=== PATIENT | male | born 1930 | race Caucasian/White ===

== ENCOUNTER 2017-06-01 12:49 | Inpatient (IN) | payer OTHER ==
[~2017-06-01] VITALS: Ht 180.3 cm; Wt 66.3 kg
[2017-06-01 14:07] LABS: BASOPHIL (%) 0.5 % (0-1); BASOPHIL COUNT 0.1 K/uL (0-0.1); EOSINOPHIL (%) 2.7 % (0-5); EOSINOPHIL COUNT 0.3 K/uL (0-0.3); HEMATOCRIT 37.1 % (38.0-50.0); HEMOGLOBIN 11.9 G/DL (12.5-16.6); IMMATURE GRANULOCYTE (%) 0.4 % (0.0-0.7); LYMPHOCYTE (%) 10.6 % (15-42); LYMPHOCYTE COUNT 1.2 K/uL (1.0-2.8); MCH 31.5 PG (29.0-34.0); MCHC 32.1 G/DL (30.0-36.0); MCV 98.1 FL (86-99); MONOCYTE (%) 10.5 % (3-12); MONOCYTE COUNT 1.2 K/uL (0-0.8); NEUTROPHIL (%) 75.3 % (45-76); NEUTROPHIL COUNT 8.5 K/uL (1.8-6.4); PLATELET COUNT 354 K/uL (156-360); RBC DIS.WIDTH-CV 17.1 % (11.8-14.6); RBC DIS.WIDTH-SD 61.5 % (39-53); RED BLOOD COUNT 3.78 M/uL (4.00-5.50); WHITE BLOOD COUNT 11.3 K/uL (4.1-10.2)
[2017-06-01 14:17] LABS: CHLORIDE 97 mEq/L (99-109); POTASSIUM 5.8 mEq/L (3.7-5.4); SODIUM 134 mEq/L (136-147)
[2017-06-01 14:18] LABS: MAGNESIUM 1.6 mg/dL (1.3-2.7)
[2017-06-01 14:19] LABS: GLUCOSE 136 mg/dL (70-99)
[2017-06-01 14:23] LABS: CREATININE 3.7 mg/dL (0.6-1.3); GFR ESTIMATE (CALCULATED) 17 mL/min/ (58.99-99999); UREA NITROGEN (BUN) 75 mg/dL (9-23)
[2017-06-01 14:30] LABS: TROP-I INTERPRETATION NEGATIVE; TROPONIN-I 0.04 ng/mL (0.0-0.30)
[2017-06-01 14:31] LABS: INTER. NORMALIZED RATIO 1.2
[2017-06-01 14:34] LABS: PTT 34.4 SEC (25-37)
[2017-06-01 16:34] LABS: HDL CHOLESTEROL 39 MG/DL (Desirable>=40); LDL CHOLESTEROL 32 mg/dL (Desirable<100); NON-HDL CHOLESTEROL 44 mg/dL (Desirable<160); TOTAL CHOLESTEROL 83 mg/dL (Desirable<200); TRIGLYCERIDES 60 MG/DL (Normal: <150)
[2017-06-01 16:38] LABS: Estimated Average Glucose 146 mg/dL (70-123); HEMOGLOBIN A1c (GLYCOHEMOGLOB) 6.7 % HGB (Below 5.7)
[2017-06-01 22:51] LABS: TROP-I INTERPRETATION NEGATIVE; TROPONIN-I 0.04 ng/mL (0.0-0.30)
[2017-06-02 02:59] LABS: TROP-I INTERPRETATION NEGATIVE; TROPONIN-I 0.04 ng/mL (0.0-0.30)
[2017-06-02 07:43] VITALS: BP 133/74
[2017-06-02 08:08] LABS: CHLORIDE 99 MEQ/L (99-109); CREATININE 3.7 MG/DL (0.6-1.3); GFR ESTIMATE (CALCULATED) 17 mL/min/ (58.99-99999); GLUCOSE 125 mg/dL (70-99); POTASSIUM 5.6 MEQ/L (3.7-5.4); SODIUM 134 MEQ/L (136-147); UREA NITROGEN (BUN) 73 mg/dL (9-23)
[2017-06-02 09:19] LABS: BASOPHIL (%) 0.9 % (0-1); BASOPHIL COUNT 0.1 K/uL (0-0.1); EOSINOPHIL (%) 5.4 % (0-5); EOSINOPHIL COUNT 0.5 K/uL (0-0.3); HEMATOCRIT 35.2 % (38.0-50.0); HEMOGLOBIN 11.3 G/DL (12.5-16.6); IMMATURE GRANULOCYTE (%) 0.5 % (0.0-0.7); LYMPHOCYTE (%) 13.3 % (15-42); LYMPHOCYTE COUNT 1.2 K/uL (1.0-2.8); MCH 31.4 PG (29.0-34.0); MCHC 32.1 G/DL (30.0-36.0); MCV 97.8 FL (86-99); MONOCYTE (%) 11.5 % (3-12); NEUTROPHIL (%) 68.4 % (45-76); NEUTROPHIL COUNT 5.9 K/uL (1.8-6.4); PLATELET COUNT 369 K/uL (156-360); RBC DIS.WIDTH-CV 17.3 % (11.8-14.6); RBC DIS.WIDTH-SD 61.8 % (39-53); WHITE BLOOD COUNT 8.7 K/uL (4.1-10.2)
[2017-06-02 09:24] LABS: ALBUMIN 2.6 G/DL (3.2-4.8)
[2017-06-02 09:30] LABS: PHOSPHORUS 3.7 mg/dL (2.5-4.9)
[2017-06-02 10:17] LABS: HEPATITIS B SURFACE ANTIBODY Nonreactive; HEPATITIS B SURFACE ANTIGEN Nonreactive
[2017-06-02 16:54] VITALS: BP 132/62
[2017-06-02 16:56] VITALS: BP 108/65
[2017-06-02 20:02] VITALS: BP 114/67
[2017-06-03] VITALS (7 sets, daily range): BP systolic 119–133; BP diastolic 60–73
[2017-06-03 06:40] LABS: HEMATOCRIT 34.4 % (38.0-50.0); HEMOGLOBIN 10.8 G/DL (12.5-16.6); MCH 30.9 PG (29.0-34.0); MCHC 31.4 G/DL (30.0-36.0); MCV 98.3 FL (86-99); PLATELET COUNT 380 K/uL (156-360); RBC DIS.WIDTH-CV 17.2 % (11.8-14.6); RBC DIS.WIDTH-SD 62.1 % (39-53)
[2017-06-03 07:11] LABS: CHLORIDE 99 MEQ/L (99-109); POTASSIUM 5.1 MEQ/L (3.7-5.4); SODIUM 134 MEQ/L (136-147)
[2017-06-03 07:24] LABS: GFR ESTIMATE (CALCULATED) 21 mL/min/ (58.99-99999); GLUCOSE 127 mg/dL (70-99); UREA NITROGEN (BUN) 42 mg/dL (9-23)
[2017-06-04 03:41] VITALS: BP 121/69
[2017-06-04 07:06] VITALS: BP 105/54
[2017-06-04 08:57] LABS: BASOPHIL COUNT 0.1 K/uL (0-0.1); EOSINOPHIL (%) 4.3 % (0-5); EOSINOPHIL COUNT 0.3 K/uL (0-0.3); HEMATOCRIT 31.3 % (38.0-50.0); HEMOGLOBIN 10.3 G/DL (12.5-16.6); IMMATURE GRANULOCYTE (%) 0.6 % (0.0-0.7); LYMPHOCYTE COUNT 1.2 K/uL (1.0-2.8); MCH 31.9 PG (29.0-34.0); MCHC 32.9 G/DL (30.0-36.0); MCV 96.9 FL (86-99); MONOCYTE (%) 14.2 % (3-12); MONOCYTE COUNT 1.1 K/uL (0-0.8); NEUTROPHIL (%) 64.9 % (45-76); NEUTROPHIL COUNT 5.1 K/uL (1.8-6.4); PLATELET COUNT 357 K/uL (156-360); RBC DIS.WIDTH-CV 16.8 % (11.8-14.6); RBC DIS.WIDTH-SD 59.8 % (39-53); RED BLOOD COUNT 3.23 M/uL (4.00-5.50); WHITE BLOOD COUNT 7.9 K/uL (4.1-10.2)
[2017-06-04 09:08] LABS: ALBUMIN 2.6 G/DL (3.2-4.8); CHLORIDE 100 MEQ/L (99-109); POTASSIUM 5.6 MEQ/L (3.7-5.4); SODIUM 132 MEQ/L (136-147)
[2017-06-04 09:14] LABS: CREATININE 3.2 MG/DL (0.6-1.3); GFR ESTIMATE (CALCULATED) 20 mL/min/ (58.99-99999); GLUCOSE 183 mg/dL (70-99); UREA NITROGEN (BUN) 55 mg/dL (9-23)
[2017-06-04 15:34] VITALS: BP 103/56
[2017-06-04 20:11] VITALS: BP 127/72
[2017-06-05] VITALS (7 sets, daily range): BP systolic 110–132; BP diastolic 58–98
[2017-06-05 07:04] LABS: CHLORIDE 100 MEQ/L (99-109); GFR ESTIMATE (CALCULATED) 26 mL/min/ (58.99-99999); POTASSIUM 5.7 MEQ/L (3.7-5.4); SODIUM 133 MEQ/L (136-147); UREA NITROGEN (BUN) 33 mg/dL (9-23)
[2017-06-05 07:09] LABS: CREATININE 2.5 MG/DL (0.6-1.3); GLUCOSE 116 mg/dL (70-99)
[2017-06-05 13:08] LABS: LACTATE DEHYDROGENASE 179 IU/L (20-246); TOTAL PROTEIN 5.5 G/DL (6.4-8.3)
[2017-06-05 16:11] LABS: BODY FLUID LDH 125 IU/L; BODY FLUID PROTEIN 3.3 G/DL
[2017-06-05 16:16] LABS: RED CELL COUNT 21000 /MM^3 (0-1); WHITE CELL COUNT 592 /MM^3 (0-200.0)
[2017-06-05 16:19] LABS: MONONUCLEAR WBC'S 88 %; POLYNUCLEAR WBC'S 9 % (0-25); SYNOVIAL FLUID EOSINOPHILS 3 % (0-25)
[2017-06-06 03:26] VITALS: BP 116/59
[2017-06-06 07:19] VITALS: BP 107/62
[2017-06-06 08:38] LABS: BASOPHIL (%) 0.8 % (0-1); BASOPHIL COUNT 0.1 K/uL (0-0.1); EOSINOPHIL (%) 0.8 % (0-5); EOSINOPHIL COUNT 0.1 K/uL (0-0.3); HEMATOCRIT 33.9 % (38.0-50.0); HEMOGLOBIN 10.9 G/DL (12.5-16.6); IMMATURE GRANULOCYTE (%) 0.6 % (0.0-0.7); LYMPHOCYTE (%) 9.2 % (15-42); MCH 31.1 PG (29.0-34.0); MCHC 32.2 G/DL (30.0-36.0); MCV 96.9 FL (86-99); MONOCYTE (%) 9.6 % (3-12); MONOCYTE COUNT 1.1 K/uL (0-0.8); NEUTROPHIL COUNT 8.9 K/uL (1.8-6.4); PLATELET COUNT 387 K/uL (156-360); RBC DIS.WIDTH-CV 16.5 % (11.8-14.6); RBC DIS.WIDTH-SD 58.6 % (39-53); WHITE BLOOD COUNT 11.2 K/uL (4.1-10.2)
[2017-06-06 08:50] LABS: ALBUMIN 2.6 G/DL (3.2-4.8); CHLORIDE 100 MEQ/L (99-109); POTASSIUM 5.7 MEQ/L (3.7-5.4); SODIUM 131 MEQ/L (136-147)
[2017-06-06 09:03] LABS: GFR ESTIMATE (CALCULATED) 21 mL/min/ (58.99-99999); PHOSPHORUS 4.9 mg/dL (2.5-4.9)
[2017-06-06 09:04] LABS: CREATININE 3.1 MG/DL (0.6-1.3); GLUCOSE 226 mg/dL (70-99); UREA NITROGEN (BUN) 51 mg/dL (9-23)
[2017-06-06 10:16] LABS: CRYSTALS NO CRYSTALS SEEN
[2017-06-06 12:18] VITALS: BP 93/50
[2017-06-06 17:10] VITALS: BP 101/55
[2017-06-06 20:31] VITALS: BP 96/52
[2017-06-07 01:38] VITALS: BP 88/49
[2017-06-07 05:08] VITALS: BP 101/63
[2017-06-07 08:00] VITALS: BP 92/58
[2017-06-07 16:00] VITALS: BP 104/63
[2017-06-07 23:49] VITALS: BP 101/53
[2017-06-08 08:23] VITALS: BP 112/60
[2017-06-08 11:16] LABS: C DIFF TOXIN NEGATIVE (NEGATIVE)
[2017-06-08 11:18] LABS: BASOPHIL (%) 0.7 % (0-1); BASOPHIL COUNT 0.1 K/uL (0-0.1); EOSINOPHIL (%) 1.4 % (0-5); EOSINOPHIL COUNT 0.2 K/uL (0-0.3); HEMATOCRIT 34.7 % (38.0-50.0); HEMOGLOBIN 11.2 G/DL (12.5-16.6); IMMATURE GRANULOCYTE (%) 0.5 % (0.0-0.7); LYMPHOCYTE (%) 8.7 % (15-42); LYMPHOCYTE COUNT 0.9 K/uL (1.0-2.8); MCH 31.5 PG (29.0-34.0); MCHC 32.3 G/DL (30.0-36.0); MCV 97.5 FL (86-99); MONOCYTE (%) 8.8 % (3-12); MONOCYTE COUNT 0.9 K/uL (0-0.8); NEUTROPHIL (%) 79.9 % (45-76); NEUTROPHIL COUNT 8.5 K/uL (1.8-6.4); PLATELET COUNT 336 K/uL (156-360); RBC DIS.WIDTH-CV 16.2 % (11.8-14.6); RBC DIS.WIDTH-SD 58.3 % (39-53); RED BLOOD COUNT 3.56 M/uL (4.00-5.50); WHITE BLOOD COUNT 10.6 K/uL (4.1-10.2)
[2017-06-08 11:44] LABS: CHLORIDE 99 MEQ/L (99-109); CREATININE 3.2 MG/DL (0.6-1.3); GFR ESTIMATE (CALCULATED) 20 mL/min/ (58.99-99999); GLUCOSE 171 mg/dL (70-99); POTASSIUM 5.2 MEQ/L (3.7-5.4); SODIUM 133 MEQ/L (136-147); UREA NITROGEN (BUN) 59 mg/dL (9-23)
[2017-06-08 16:00] VITALS: BP 107/60
[2017-06-08 20:30] VITALS: BP 107/53
[2017-06-09 00:07] VITALS: BP 108/58
[2017-06-09 00:10] VITALS: BP 114/55
[2017-06-09 07:46] VITALS: BP 103/53
[2017-06-09 08:08] LABS: BASOPHIL (%) 0.6 % (0-1); BASOPHIL COUNT 0.1 K/uL (0-0.1); EOSINOPHIL (%) 2.7 % (0-5); EOSINOPHIL COUNT 0.2 K/uL (0-0.3); HEMOGLOBIN 9.5 G/DL (12.5-16.6); IMMATURE GRANULOCYTE (%) 0.6 % (0.0-0.7); LYMPHOCYTE (%) 15.1 % (15-42); LYMPHOCYTE COUNT 1.2 K/uL (1.0-2.8); MCH 31.5 PG (29.0-34.0); MCHC 32.8 G/DL (30.0-36.0); MONOCYTE (%) 7.8 % (3-12); MONOCYTE COUNT 0.6 K/uL (0-0.8); NEUTROPHIL (%) 73.2 % (45-76); PLATELET COUNT 374 K/uL (156-360); RBC DIS.WIDTH-SD 56.2 % (39-53); RED BLOOD COUNT 3.02 M/uL (4.00-5.50); WHITE BLOOD COUNT 8.2 K/uL (4.1-10.2)
[2017-06-09 08:24] LABS: CHLORIDE 100 MEQ/L (99-109); CREATININE 3.4 MG/DL (0.6-1.3); GFR ESTIMATE (CALCULATED) 18 mL/min/ (58.99-99999); GLUCOSE 149 mg/dL (70-99); POTASSIUM 4.3 MEQ/L (3.7-5.4); SODIUM 132 MEQ/L (136-147); UREA NITROGEN (BUN) 68 mg/dL (9-23)
[2017-06-09 12:08] VITALS: BP 103/53
[2017-06-09 16:09] VITALS: BP 115/56
[2017-06-10 08:20] LABS: BASOPHIL (%) 0.7 % (0-1); BASOPHIL COUNT 0.1 K/uL (0-0.1); EOSINOPHIL COUNT 0.1 K/uL (0-0.3); HEMATOCRIT 33.5 % (38.0-50.0); HEMOGLOBIN 10.8 G/DL (12.5-16.6); IMMATURE GRANULOCYTE (%) 0.6 % (0.0-0.7); LYMPHOCYTE (%) 9.5 % (15-42); LYMPHOCYTE COUNT 0.9 K/uL (1.0-2.8); MCH 31.8 PG (29.0-34.0); MCHC 32.2 G/DL (30.0-36.0); MCV 98.5 FL (86-99); MONOCYTE (%) 9.2 % (3-12); MONOCYTE COUNT 0.8 K/uL (0-0.8); NEUTROPHIL COUNT 7.1 K/uL (1.8-6.4); PLATELET COUNT 388 K/uL (156-360); RBC DIS.WIDTH-CV 16.1 % (11.8-14.6)
[2017-06-10 08:24] LABS: CHLORIDE 105 MEQ/L (99-109); POTASSIUM 4.8 MEQ/L (3.7-5.4); SODIUM 138 MEQ/L (136-147)
[2017-06-10 08:30] LABS: GFR ESTIMATE (CALCULATED) 28 mL/min/ (58.99-99999); UREA NITROGEN (BUN) 38 mg/dL (9-23)
[2017-06-10 08:31] LABS: CREATININE 2.4 MG/DL (0.6-1.3); GLUCOSE 73 mg/dL (70-99)
[2017-06-10 18:15] VITALS: BP 104/54
[2017-06-11 01:16] VITALS: BP 98/54
[2017-06-11 03:56] VITALS: BP 95/54
[2017-06-11 08:00] VITALS: BP 112/60
[2017-06-11 08:52] LABS: BASOPHIL (%) 0.7 % (0-1); BASOPHIL COUNT 0.1 K/uL (0-0.1); EOSINOPHIL (%) 2.7 % (0-5); EOSINOPHIL COUNT 0.2 K/uL (0-0.3); HEMATOCRIT 26.2 % (38.0-50.0); IMMATURE GRANULOCYTE (%) 0.2 % (0.0-0.7); LYMPHOCYTE (%) 10.6 % (15-42); LYMPHOCYTE COUNT 0.9 K/uL (1.0-2.8); MCH 31.7 PG (29.0-34.0); MCHC 32.4 G/DL (30.0-36.0); MCV 97.8 FL (86-99); MONOCYTE (%) 8.8 % (3-12); MONOCYTE COUNT 0.7 K/uL (0-0.8); NEUTROPHIL COUNT 6.2 K/uL (1.8-6.4); PLATELET COUNT 387 K/uL (156-360); RBC DIS.WIDTH-SD 57.3 % (39-53); WHITE BLOOD COUNT 8.1 K/uL (4.1-10.2)
[2017-06-11 08:54] LABS: ALBUMIN 2.3 G/DL (3.2-4.8); CHLORIDE 107 MEQ/L (99-109); POTASSIUM 4.5 MEQ/L (3.7-5.4); SODIUM 137 MEQ/L (136-147)
[2017-06-11 09:01] LABS: GFR ESTIMATE (CALCULATED) 21 mL/min/ (58.99-99999); PHOSPHORUS 4.3 mg/dL (2.5-4.9); UREA NITROGEN (BUN) 51 mg/dL (9-23)
[2017-06-11 09:07] LABS: GLUCOSE 200 mg/dL (70-99)
[2017-06-11 09:15] LABS: HEMOGLOBIN 8.5 G/DL (12.5-16.6); RED BLOOD COUNT 2.68 M/uL (4.00-5.50)
[2017-06-11 12:15] VITALS: BP 96/52
[2017-06-11 15:12] LABS: HEMATOCRIT 29.4 % (38.0-50.0); HEMOGLOBIN 9.2 G/DL (12.5-16.6); MCH 30.7 PG (29.0-34.0); MCHC 31.3 G/DL (30.0-36.0); PLATELET COUNT 352 K/uL (156-360); RBC DIS.WIDTH-CV 15.8 % (11.8-14.6); RBC DIS.WIDTH-SD 56.4 % (39-53); WHITE BLOOD COUNT 9.1 K/uL (4.1-10.2)
[2017-06-11 16:00] VITALS: BP 114/58
[2017-06-11 20:09] VITALS: BP 103/51
[2017-06-12 00:03] VITALS: BP 104/59
[2017-06-12 03:54] VITALS: BP 101/59
[2017-06-12 06:12] LABS: BASOPHIL (%) 0.5 % (0-1); EOSINOPHIL (%) 3.1 % (0-5); EOSINOPHIL COUNT 0.2 K/uL (0-0.3); HEMATOCRIT 27.6 % (38.0-50.0); HEMOGLOBIN 8.9 G/DL (12.5-16.6); IMMATURE GRANULOCYTE (%) 0.4 % (0.0-0.7); LYMPHOCYTE (%) 15.4 % (15-42); LYMPHOCYTE COUNT 1.2 K/uL (1.0-2.8); MCH 31.3 PG (29.0-34.0); MCHC 32.2 G/DL (30.0-36.0); MCV 97.2 FL (86-99); MONOCYTE (%) 9.3 % (3-12); MONOCYTE COUNT 0.7 K/uL (0-0.8); NEUTROPHIL (%) 71.3 % (45-76); NEUTROPHIL COUNT 5.6 K/uL (1.8-6.4); PLATELET COUNT 388 K/uL (156-360); RBC DIS.WIDTH-CV 15.8 % (11.8-14.6); RBC DIS.WIDTH-SD 55.5 % (39-53); RED BLOOD COUNT 2.84 M/uL (4.00-5.50); WHITE BLOOD COUNT 7.8 K/uL (4.1-10.2)
[2017-06-12 06:42] LABS: CHLORIDE 102 MEQ/L (99-109); GFR ESTIMATE (CALCULATED) 32 mL/min/ (58.99-99999); GLUCOSE 139 mg/dL (70-99); POTASSIUM 3.9 MEQ/L (3.7-5.4); SODIUM 138 MEQ/L (136-147); UREA NITROGEN (BUN) 31 mg/dL (9-23)
[2017-06-12 06:48] LABS: CREATININE 2.1 MG/DL (0.6-1.3)
[2017-06-12 07:08] VITALS: BP 103/54
[2017-06-12 10:59] VITALS: BP 106/52
[2017-06-13] VITALS: BP 132/61
[2017-06-13 06:52] LABS: BASOPHIL (%) 0.9 % (0-1); BASOPHIL COUNT 0.1 K/uL (0-0.1); EOSINOPHIL (%) 2.8 % (0-5); EOSINOPHIL COUNT 0.2 K/uL (0-0.3); HEMATOCRIT 28.9 % (38.0-50.0); HEMOGLOBIN 9.4 G/DL (12.5-16.6); IMMATURE GRANULOCYTE (%) 0.6 % (0.0-0.7); LYMPHOCYTE (%) 14.3 % (15-42); LYMPHOCYTE COUNT 1.2 K/uL (1.0-2.8); MCH 31.4 PG (29.0-34.0); MCHC 32.5 G/DL (30.0-36.0); MCV 96.7 FL (86-99); MONOCYTE (%) 8.8 % (3-12); MONOCYTE COUNT 0.7 K/uL (0-0.8); NEUTROPHIL (%) 72.6 % (45-76); NEUTROPHIL COUNT 5.9 K/uL (1.8-6.4); PLATELET COUNT 457 K/uL (156-360); RBC DIS.WIDTH-CV 15.8 % (11.8-14.6); RBC DIS.WIDTH-SD 55.4 % (39-53); RED BLOOD COUNT 2.99 M/uL (4.00-5.50); WHITE BLOOD COUNT 8.1 K/uL (4.1-10.2)
[2017-06-13 07:02] LABS: CHLORIDE 101 MEQ/L (99-109); GFR ESTIMATE (CALCULATED) 23 mL/min/ (58.99-99999); GLUCOSE 136 mg/dL (70-99); POTASSIUM 4.6 MEQ/L (3.7-5.4); SODIUM 136 MEQ/L (136-147); UREA NITROGEN (BUN) 44 mg/dL (9-23)
[2017-06-13 07:03] VITALS: BP 116/57
[2017-06-13 07:06] LABS: CREATININE 2.8 MG/DL (0.6-1.3)
[2017-06-13 15:08] VITALS: BP 107/63
[2017-06-13 23:25] VITALS: BP 136/51
[2017-06-14 07:32] VITALS: BP 110/74
[2017-06-14 09:06] LABS: CHLORIDE 99 MEQ/L (99-109); POTASSIUM 4.8 MEQ/L (3.7-5.4); SODIUM 131 MEQ/L (136-147)
[2017-06-14 09:07] LABS: BASOPHIL (%) 0.8 % (0-1); BASOPHIL COUNT 0.1 K/uL (0-0.1); EOSINOPHIL (%) 2.4 % (0-5); EOSINOPHIL COUNT 0.2 K/uL (0-0.3); HEMATOCRIT 28.5 % (38.0-50.0); HEMOGLOBIN 9.2 G/DL (12.5-16.6); IMMATURE GRANULOCYTE (%) 0.7 % (0.0-0.7); LYMPHOCYTE (%) 14.2 % (15-42); LYMPHOCYTE COUNT 1.1 K/uL (1.0-2.8); MCHC 32.3 G/DL (30.0-36.0); MONOCYTE (%) 9.3 % (3-12); MONOCYTE COUNT 0.7 K/uL (0-0.8); NEUTROPHIL (%) 72.6 % (45-76); NEUTROPHIL COUNT 5.4 K/uL (1.8-6.4); PLATELET COUNT 548 K/uL (156-360); RBC DIS.WIDTH-CV 15.7 % (11.8-14.6); RBC DIS.WIDTH-SD 54.3 % (39-53); RED BLOOD COUNT 2.97 M/uL (4.00-5.50); WHITE BLOOD COUNT 7.5 K/uL (4.1-10.2)
[2017-06-14 09:11] LABS: CREATININE 3.1 MG/DL (0.6-1.3); GFR ESTIMATE (CALCULATED) 21 mL/min/ (58.99-99999); GLUCOSE 165 mg/dL (70-99); UREA NITROGEN (BUN) 56 mg/dL (9-23)
[2017-06-14 09:16] LABS: ALBUMIN 2.3 G/DL (3.2-4.8)
[2017-06-14] MEDS ORDERED: TYLENOL REGULA325 MG PO (13:17)
[2017-06-14] MEDS ORDERED: CLOPIDOGREL75 MG PO (13:17)
[2017-06-14] MEDS ORDERED: ATORVASTATIN CA40 MG PO (13:17)
[2017-06-14] MEDS ORDERED: LOPRESSOR25 MG PO (13:17)
[2017-06-14] MEDS ORDERED: ASPIR-LOW81 MG PO (13:17)
[2017-06-14] MEDS ORDERED: NOVOLOG PE100 UNITS/ SC (13:18)
[2017-06-14] MEDS ORDERED: NEPHRO-VITE,1 TABLET PO (13:18)
== END 2017-06-14 14:39 | DRG 23 ==
LOC: EME 12:49 → 2SOUTH 15:23 → 5SOUTH 15:23 → EDOF 15:23 → ENRESERV 15:26 → 5SOUTH 18:13 → ENRESERV 06-09 11:37 → 5SOUTH 06-09 17:42 → 2SOUTH 06-10 06:56 → ENRESERV 06-10 16:06 → 5SOUTH 06-10 17:45
PROVIDERS: Emergency Medicine; Internal Medicine; Internal Medicine Nephrology; Physician Assistant; Radiology Diagnostic Radiology
DX: I63.233 Cerebral infarction due to unspecified occlusion or stenosis of bilateral carotid arteries (principal); N18.6 End stage renal disease; E11.22 Type 2 diabetes mellitus with diabetic chronic kidney disease; E11.51 Type 2 diabetes mellitus with diabetic peripheral angiopathy without gangrene; I95.9 Hypotension, unspecified; I07.1 Rheumatic tricuspid insufficiency; J44.9 Chronic obstructive pulmonary disease, unspecified; I65.23 Occlusion and stenosis of bilateral carotid arteries; E78.5 Hyperlipidemia, unspecified; I50.9 Heart failure, unspecified; D63.1 Anemia in chronic kidney disease; I12.9 Hypertensive chronic kidney disease with stage 1 through stage 4 chronic kidney disease, or unspecified chronic kidney disease; R09.02 Hypoxemia; K21.9 Gastro-esophageal reflux disease without esophagitis; J98.11 Atelectasis; G83.24 Monoplegia of upper limb affecting left nondominant side; M21.332 Wrist drop, left wrist; I48.2 Chronic atrial fibrillation; Z96.652 Presence of left artificial knee joint; Z99.2 Dependence on renal dialysis; R94.31 Abnormal electrocardiogram [ECG] [EKG]; M97.12XD Periprosthetic fracture around internal prosthetic left knee joint, subsequent encounter; Z86.73 Personal history of transient ischemic attack (TIA), and cerebral infarction without residual deficits; Z68.1 Body mass index [BMI] 19.9 or less, adult; Z79.82 Long term (current) use of aspirin; Z87.891 Personal history of nicotine dependence; Z91.81 History of falling; Q21.1 Atrial septal defect
CPT/HCPCS: 70450; 70496; 70498; 70551; 71010; 71020; 71045; 71046; 71250; 73552; 76942; 80048; 80061; 80069; 82948; 83036; 83615; 83615 91; 83735; 84155; 84157; 84484; 85025; 85025 91; 85027; 85610; 85730; 86706; 86850; 86900; 86901; 86920; 87070; 87075; 87205; 87340; 87493; 88108; 88300; 88305; 89051; 93005; 93306; 93970; 94799; 99281; 99285; C1768; J0690; J0881; J1644; J1815; J1940; J2370; J2720; J2795; J3010; J7030; J7050; J7120

== ENCOUNTER 2017-06-20 12:28 | Inpatient (IN) | payer OTHER ==
[~2017-06-20] VITALS: Ht 180.3 cm; Wt 65.9 kg
[~2017-06-20 12:28] MED LIST: ASPIR-LOW81 MG PO; ATORVASTATIN CA40 MG PO; CLOPIDOGREL75 MG PO; LOPRESSOR25 MG PO; NEPHRO-VITE,1 TABLET PO; NOVOLOG PE100 UNITS/ SC; TYLENOL REGULA325 MG PO
[2017-06-20 14:23] LABS: HEMATOCRIT 29.7 % (38.0-50.0); HEMOGLOBIN 9.5 G/DL (12.5-16.6); MCH 31.7 PG (29.0-34.0); PLATELET COUNT 468 K/uL (156-360); RBC DIS.WIDTH-CV 17.2 % (11.8-14.6); WHITE BLOOD COUNT 10.9 K/uL (4.1-10.2)
[2017-06-20 14:31] LABS: CHLORIDE 101 mEq/L (99-109); INTER. NORMALIZED RATIO 1.3; POTASSIUM 5.6 mEq/L (3.7-5.4); SODIUM 130 mEq/L (136-147)
[2017-06-20 14:33] LABS: GLUCOSE 116 mg/dL (70-99)
[2017-06-20 14:34] LABS: PTT 34.2 SEC (25-37)
[2017-06-20 14:37] LABS: GFR ESTIMATE (CALCULATED) 27 mL/min/ (58.99-99999)
[2017-06-20 14:38] LABS: CREATININE 2.4 mg/dL (0.6-1.3); UREA NITROGEN (BUN) 64 mg/dL (9-23)
[2017-06-20] MEDS ORDERED: ROCALTROL0.25 MCG PO (16:18)
[2017-06-20] MEDS ORDERED: ACID CONTROL150 MG PO (16:18)
[2017-06-20] MEDS ORDERED: LIPITOR40 MG PO (16:19)
[2017-06-20] MEDS ORDERED: LOPRESSOR25 MG PO (16:19)
[2017-06-20] MEDS ORDERED: ASPIR 8181 M1 PO (16:20)
[2017-06-20] MEDS ORDERED: FULL SPECTRUM0.8 MG PO (16:21)
[2017-06-20] MEDS ORDERED: EXTRA STRENGTH500 M1 PO (16:23)
[2017-06-20] MEDS ORDERED: NOVOLOG 10100 UNITS/ SC (16:25)
[2017-06-20] MEDS ORDERED: PLAVIX75 MG PO (16:25)
[2017-06-20 18:31] VITALS: BP 106/69
[2017-06-20 20:46] LABS: HEMATOCRIT 27.1 % (38.0-50.0); HEMOGLOBIN 8.5 G/DL (12.5-16.6); MCV 101.5 FL (86-99)
[2017-06-20 23:00] VITALS: BP 129/93
[2017-06-21 01:58] LABS: HEMATOCRIT 23.6 % (38.0-50.0); HEMOGLOBIN 7.6 G/DL (12.5-16.6); MCV 98.3 FL (86-99)
[2017-06-21 04:18] VITALS: BP 95/51
[2017-06-21 05:18] LABS: HEMATOCRIT 21.7 % (38.0-50.0); HEMOGLOBIN 7.1 G/DL (12.5-16.6); MCH 32.3 PG (29.0-34.0); MCHC 32.7 G/DL (30.0-36.0); MCV 98.6 FL (86-99); PLATELET COUNT 452 K/uL (156-360); RBC DIS.WIDTH-CV 17.5 % (11.8-14.6); RBC DIS.WIDTH-SD 59.3 % (39-53); WHITE BLOOD COUNT 10.4 K/uL (4.1-10.2)
[2017-06-21 08:19] VITALS: BP 87/52
[2017-06-21 08:43] LABS: HEMATOCRIT 22.4 % (38.0-50.0); HEMOGLOBIN 7.1 G/DL (12.5-16.6); MCV 99.1 FL (86-99)
[2017-06-21 14:25] VITALS: BP 90/60
[2017-06-21 16:08] VITALS: BP 116/56
[2017-06-21 18:18] LABS: HEMATOCRIT 32.2 % (38.0-50.0)
[2017-06-21 18:20] LABS: HEMOGLOBIN 10.2 G/DL (12.5-16.6); MCV 94.7 FL (86-99)
[2017-06-21 23:57] VITALS: BP 107/56
[2017-06-22 05:27] LABS: BASOPHIL (%) 0.7 % (0-1); BASOPHIL COUNT 0.1 K/uL (0-0.1); EOSINOPHIL (%) 1.9 % (0-5); EOSINOPHIL COUNT 0.2 K/uL (0-0.3); HEMATOCRIT 29.4 % (38.0-50.0); HEMOGLOBIN 9.5 G/DL (12.5-16.6); IMMATURE GRANULOCYTE (%) 0.9 % (0.0-0.7); LYMPHOCYTE (%) 14.2 % (15-42); LYMPHOCYTE COUNT 1.4 K/uL (1.0-2.8); MCH 30.5 PG (29.0-34.0); MCHC 32.3 G/DL (30.0-36.0); MCV 94.5 FL (86-99); MONOCYTE (%) 10.3 % (3-12); PLATELET COUNT 326 K/uL (156-360); RBC DIS.WIDTH-CV 19.8 % (11.8-14.6); RBC DIS.WIDTH-SD 63.8 % (39-53); WHITE BLOOD COUNT 9.8 K/uL (4.1-10.2)
[2017-06-22 05:40] LABS: RED BLOOD COUNT 3.11 M/uL (4.00-5.50)
[2017-06-22 06:16] LABS: CHLORIDE 103 MEQ/L (99-109); CREATININE 2.2 MG/DL (0.6-1.3); GFR ESTIMATE (CALCULATED) 30 mL/min/ (58.99-99999); GLUCOSE 138 mg/dL (70-99); POTASSIUM 4.1 MEQ/L (3.7-5.4); SODIUM 134 MEQ/L (136-147); UREA NITROGEN (BUN) 33 mg/dL (9-23)
[2017-06-22 09:23] VITALS: BP 102/57
[2017-06-22 12:00] VITALS: BP 104/51
[2017-06-22 15:43] VITALS: BP 108/57
[2017-06-22 19:55] VITALS: BP 126/59
[2017-06-22 23:54] VITALS: BP 106/65
[2017-06-23 03:30] VITALS: BP 101/56
[2017-06-23 06:06] LABS: BASOPHIL (%) 0.9 % (0-1); BASOPHIL COUNT 0.1 K/uL (0-0.1); EOSINOPHIL (%) 2.1 % (0-5); EOSINOPHIL COUNT 0.2 K/uL (0-0.3); HEMOGLOBIN 9.1 G/DL (12.5-16.6); IMMATURE GRANULOCYTE (%) 0.6 % (0.0-0.7); LYMPHOCYTE (%) 12.7 % (15-42); LYMPHOCYTE COUNT 1.2 K/uL (1.0-2.8); MCH 29.7 PG (29.0-34.0); MCHC 31.4 G/DL (30.0-36.0); MCV 94.8 FL (86-99); MONOCYTE (%) 8.6 % (3-12); MONOCYTE COUNT 0.8 K/uL (0-0.8); NEUTROPHIL (%) 75.1 % (45-76); NEUTROPHIL COUNT 7.1 K/uL (1.8-6.4); PLATELET COUNT 310 K/uL (156-360); RBC DIS.WIDTH-CV 19.5 % (11.8-14.6); RBC DIS.WIDTH-SD 63.6 % (39-53); RED BLOOD COUNT 3.06 M/uL (4.00-5.50); WHITE BLOOD COUNT 9.4 K/uL (4.1-10.2)
[2017-06-23 07:22] LABS: ALBUMIN 1.9 G/DL (3.2-4.8); ALKALINE PHOSPHATASE 53 IU/L (3-129); ALT (GPT) 7 IU/L (3-49); AST (GOT) 19 IU/L (2-34); CHLORIDE 104 MEQ/L (99-109); GFR ESTIMATE (CALCULATED) 24 mL/min/ (58.99-99999); GLUCOSE 118 mg/dL (70-99); POTASSIUM 4.2 MEQ/L (3.7-5.4); SODIUM 137 MEQ/L (136-147); TOTAL BILIRUBIN 0.3 MG/DL (0.0-1.0); TOTAL PROTEIN 4.4 G/DL (6.4-8.3); UREA NITROGEN (BUN) 34 mg/dL (9-23)
[2017-06-23 07:46] LABS: CREATININE 2.7 MG/DL (0.6-1.3)
[2017-06-23 07:59] VITALS: BP 104/58
== END 2017-06-23 16:24 | DRG 393 ==
LOC: EME 12:28 → EDOF 15:00 → ENRESERV 15:08 → 5WEST 18:14 → ENRESERV 18:14 → 5WEST 06-21 10:54
PROVIDERS: Emergency Medicine; Hospitalist; Internal Medicine Nephrology; Nurse Practitioner Adult Health; Physician Assistant; Student in an Organized Health Care Education/Training Program
DX: K63.3 Ulcer of intestine (principal); K92.1 Melena; T45.525A Adverse effect of antithrombotic drugs, initial encounter; T39.015A Adverse effect of aspirin, initial encounter; D62 Acute posthemorrhagic anemia; E87.1 Hypo-osmolality and hyponatremia; E86.0 Dehydration; E87.5 Hyperkalemia; I95.9 Hypotension, unspecified; R00.0 Tachycardia, unspecified; L89.890 Pressure ulcer of other site, unstageable; I13.2 Hypertensive heart and chronic kidney disease with heart failure and with stage 5 chronic kidney disease, or end stage renal disease; I50.9 Heart failure, unspecified; E11.22 Type 2 diabetes mellitus with diabetic chronic kidney disease; N18.6 End stage renal disease; D63.1 Anemia in chronic kidney disease; M10.9 Gout, unspecified; K29.70 Gastritis, unspecified, without bleeding; K21.9 Gastro-esophageal reflux disease without esophagitis; E78.5 Hyperlipidemia, unspecified; I48.2 Chronic atrial fibrillation; S72.92XD Unspecified fracture of left femur, subsequent encounter for closed fracture with routine healing; Z96.652 Presence of left artificial knee joint; Z85.51 Personal history of malignant neoplasm of bladder; Z90.411 Acquired partial absence of pancreas; Z86.73 Personal history of transient ischemic attack (TIA), and cerebral infarction without residual deficits; Z99.2 Dependence on renal dialysis; Z88.2 Allergy status to sulfonamides; Z79.82 Long term (current) use of aspirin; Z79.4 Long term (current) use of insulin; Z79.02 Long term (current) use of antithrombotics/antiplatelets; Z90.49 Acquired absence of other specified parts of digestive tract
CPT/HCPCS: 80048; 80053; 82948; 85014; 85018; 85025; 85027; 85610; 85730; 86850; 86900; 86901; 86920; 88305; 88342 TC; 99281; 99285; C9113; G0378; J0881; J7030; J7040; P9016

== ENCOUNTER 2017-07-09 16:27 | Inpatient (IN) | payer OTHER ==
[~2017-07-09] VITALS: Ht 177.8 cm; Wt 73.6 kg
[~2017-07-09 16:27] MED LIST changes: +ACID CONTROL150 MG PO; +ASPIR 8181 M1 PO; +EXTRA STRENGTH500 M1 PO; +FULL SPECTRUM0.8 MG PO; +LIPITOR40 MG PO; +NOVOLOG 10100 UNITS/ SC; +PLAVIX75 MG PO; +ROCALTROL0.25 MCG PO
[2017-07-09 16:50] LABS: BASOPHIL (%) 1.2 % (0-1); BASOPHIL COUNT 0.1 K/uL (0-0.1); EOSINOPHIL (%) 4.3 % (0-5); EOSINOPHIL COUNT 0.5 K/uL (0-0.3); HEMATOCRIT 36.6 % (38.0-50.0); IMMATURE GRANULOCYTE (%) 0.9 % (0.0-0.7); LYMPHOCYTE COUNT 1.5 K/uL (1.0-2.8); MCH 30.9 PG (29.0-34.0); MCHC 30.1 G/DL (30.0-36.0); MONOCYTE (%) 10.6 % (3-12); MONOCYTE COUNT 1.2 K/uL (0-0.8); NEUTROPHIL COUNT 7.9 K/uL (1.8-6.4); PLATELET COUNT 360 K/uL (156-360); RBC DIS.WIDTH-CV 19.4 % (11.8-14.6); RBC DIS.WIDTH-SD 73.1 % (39-53); RED BLOOD COUNT 3.56 M/uL (4.00-5.50); WHITE BLOOD COUNT 11.3 K/uL (4.1-10.2)
[2017-07-09 16:52] LABS: MCV 102.8 FL (86-99)
[2017-07-09 16:53] LABS: INTER. NORMALIZED RATIO 1.3
[2017-07-09 16:55] LABS: PTT 38.3 SEC (25-37)
[2017-07-09 17:11] LABS: TROP-I INTERPRETATION NEGATIVE; TROPONIN-I 0.03 ng/mL (0.0-0.30)
[2017-07-09 17:18] LABS: AMYLASE 19 IU/L (1-118); CHLORIDE 100 mEq/L (99-109); POTASSIUM 4.4 mEq/L (3.7-5.4); SODIUM 136 mEq/L (136-147)
[2017-07-09 17:20] LABS: GLUCOSE 189 mg/dL (70-99)
[2017-07-09 17:23] LABS: SERUM ETHYL ALCOHOL < 10 mg/dL
[2017-07-09 17:24] LABS: CREATININE 1.5 mg/dL (0.6-1.3); GFR ESTIMATE (CALCULATED) 47 mL/min/ (58.99-99999)
[2017-07-09 17:25] LABS: UREA NITROGEN (BUN) 25 mg/dL (9-23)
[2017-07-09 17:27] LABS: LIPASE 3 U/L (1.0-51.0)
[2017-07-09 17:48] LABS: APPEARANCE CLOUDY ((CLEAR)); BILIRUBIN NEGATIVE; BLOOD SMALL; COLOR YELLOW ((YELLOW)); GLUCOSE (STRIP) NEGATIVE; KETONES NEGATIVE; LEUKOCYTES LARGE; NITRITE NEGATIVE; PROTEIN (STRIP) 30; SPECIFIC GRAVITY 1.011 (1.000-1.030); UROBILINOGEN 0.2 MG/DL (0.2-1.0)
[2017-07-09 18:05] LABS: RED BLOOD CELLS 0-5 /HPF (0-5)
[2017-07-09 18:06] LABS: BACTERIA 2+ /HPF; EPITHELIAL CELLS 1+ /HPF; MUCUS NONE SEEN /LPF; UCUL ADDED? YES; WHITE BLOOD CELLS 40-50 /HPF (0-5)
[2017-07-09 18:09] LABS: AMPHETAMINE NEGATIVE (500 ng/mL); BARBITURATES NEGATIVE (200 ng/mL); BENZODIAZEPINES NEGATIVE (150 ng/mL); BUPRENORPHINE NEGATIVE (10 ng/mL); COCAINE NEGATIVE (150 ng/mL); METHADONE NEGATIVE (200 ng/mL); METHAMPHETAMINE NEGATIVE (500 ng/mL); OPIATES (MORPHINE) NEGATIVE (100 ng/mL); OXYCODONE NEGATIVE (100 ng/mL); PHENCYCLIDINE NEGATIVE (25 ng/mL); PROPOXYPHENE NEGATIVE (300 ng/mL); THC CANNABINOIDS NEGATIVE (50 ng/mL); TRICYCLIC ANTIDEPRESSANTS NEGATIVE (300 ng/mL)
[2017-07-09 18:20] LABS: BASE EXCESS 1.2 mEq/L (-3 to +3); BICARBONATE 28.9 mEq/L (22-26); CARBOXY HGB 0.4 % (0-5); COMMENTS - BLOOD GASES +C; DEVICE PB840; FI02 100 %; MECHANICAL RATE 16 resp/min; METHEMOGLOBIN 0.1 % (0-1.5); MODE AC; PCO2 63 mm Hg (35-45); PO2 209 mm Hg (80-100); SITE RR +A; pH 7.27 (7.35-7.45)
[2017-07-09 18:21] LABS: PEEP 5 CM/H20; TIDAL VOLUME 400 ML; TOTAL RESP RATE 16 resp/min
[2017-07-09] MEDS ORDERED: DRONABINOL2.5 MG PO (18:34)
[2017-07-09] MEDS ORDERED: CULTURELLE CAP1 EACH PO (18:34)
[2017-07-09] MEDS ORDERED: FULL SPECTRUM0.8 MG PO (18:36)
[2017-07-09] MEDS ORDERED: FUROSEMIDE40 MG PO (18:36)
[2017-07-09] MEDS ORDERED: MAGNESIUM400 M1 PO (18:38)
[2017-07-09] MEDS ORDERED: LEVAQUIN250 MG PO (18:38)
[2017-07-09] MEDS ORDERED: NOVOLOG 10100 UNITS/ SC (18:41)
[2017-07-09] MEDS ORDERED: SALINE NOSE SPR45 M1 BOTH NARES (18:42)
[2017-07-09] MEDS ORDERED: PROTONIX40 MG PO (18:42)
[2017-07-09] MEDS ORDERED: LIDOCAINE-PRIL1 EACH TP (18:44)
[2017-07-09 18:46] LABS: TROP-I INTERPRETATION NEGATIVE; TROPONIN-I 0.02 ng/mL (0.0-0.30)
[2017-07-09 20:20] VITALS: BP 123/77
[2017-07-09 20:48] VITALS: BP 123/77
[2017-07-09 21:00] VITALS: BP 91/76
[2017-07-09 21:16] LABS: BASE EXCESS 0.1 mEq/L (-3 to +3); BICARBONATE 25.4 mEq/L (22-26); CARBOXY HGB 0.3 % (0-5); METHEMOGLOBIN 0.7 % (0-1.5); pH 7.38 (7.35-7.45)
[2017-07-09 21:17] LABS: COMMENTS - BLOOD GASES A+C+; PCO2 43 mm Hg (35-45); PO2 126 mm Hg (80-100); SITE RR
[2017-07-09 21:18] LABS: DEVICE VENT; FI02 70 %; MECHANICAL RATE 22 resp/min; MODE A/C; PEEP 5 CM/H20; TIDAL VOLUME 440 ML; TOTAL RESP RATE 22 resp/min
[2017-07-09 22:00] VITALS: BP 83/59
[2017-07-09 23:00] VITALS: BP 138/85
[2017-07-10] VITALS (23 sets, daily range): BP systolic 68–131; BP diastolic 29–71
[2017-07-10 06:59] LABS: HEMATOCRIT 31.3 % (38.0-50.0); HEMOGLOBIN 9.7 G/DL (12.5-16.6); MCH 31.4 PG (29.0-34.0); MCV 101.3 FL (86-99); NRBC (%) 0.1 /100 WBC (0-0); PLATELET COUNT 284 K/uL (156-360); RBC DIS.WIDTH-CV 19.2 % (11.8-14.6); RBC DIS.WIDTH-SD 69.4 % (39-53); RED BLOOD COUNT 3.09 M/uL (4.00-5.50); WHITE BLOOD COUNT 17.9 K/uL (4.1-10.2)
[2017-07-10 07:20] LABS: CHLORIDE 105 MEQ/L (99-109); CREATININE 1.7 MG/DL (0.6-1.3); GFR ESTIMATE (CALCULATED) 41 mL/min/ (58.99-99999); POTASSIUM 4.2 MEQ/L (3.7-5.4); SODIUM 139 MEQ/L (136-147); UREA NITROGEN (BUN) 29 mg/dL (9-23)
[2017-07-10 07:43] LABS: GLUCOSE 112 mg/dL (70-99)
[2017-07-11] VITALS (25 sets, daily range): BP systolic 81–113; BP diastolic 44–69
[2017-07-11 05:55] LABS: BASOPHIL (%) 0.6 % (0-1); BASOPHIL COUNT 0.1 K/uL (0-0.1); EOSINOPHIL (%) 1.1 % (0-5); EOSINOPHIL COUNT 0.2 K/uL (0-0.3); HEMATOCRIT 33.8 % (38.0-50.0); HEMOGLOBIN 10.5 G/DL (12.5-16.6); IMMATURE GRANULOCYTE (%) 0.6 % (0.0-0.7); LYMPHOCYTE (%) 4.2 % (15-42); LYMPHOCYTE COUNT 0.6 K/uL (1.0-2.8); MCH 31.2 PG (29.0-34.0); MCHC 31.1 G/DL (30.0-36.0); MCV 100.3 FL (86-99); MONOCYTE (%) 8.8 % (3-12); MONOCYTE COUNT 1.3 K/uL (0-0.8); NEUTROPHIL (%) 84.7 % (45-76); NEUTROPHIL COUNT 12.2 K/uL (1.8-6.4); PLATELET COUNT 298 K/uL (156-360); RBC DIS.WIDTH-CV 19.9 % (11.8-14.6); RBC DIS.WIDTH-SD 71.8 % (39-53); RED BLOOD COUNT 3.37 M/uL (4.00-5.50); WHITE BLOOD COUNT 14.3 K/uL (4.1-10.2)
[2017-07-11 06:27] LABS: CHLORIDE 107 MEQ/L (99-109); CREATININE 2.3 MG/DL (0.6-1.3); GFR ESTIMATE (CALCULATED) 29 mL/min/ (58.99-99999); GLUCOSE 166 mg/dL (70-99); MAGNESIUM 1.5 mg/dl (1.3-2.7); PHOSPHORUS 3.9 mg/dL (2.5-4.9); POTASSIUM 4.1 MEQ/L (3.7-5.4); SODIUM 136 MEQ/L (136-147); UREA NITROGEN (BUN) 37 mg/dL (9-23); VANCOMYCIN, TROUGH 9.3 MCG/ML (10-20)
[2017-07-12] VITALS (24 sets, daily range): BP systolic 92–129; BP diastolic 48–75
[2017-07-12 06:37] LABS: VANCOMYCIN, TROUGH 14.3 MCG/ML (10-20)
[2017-07-12 07:26] LABS: ALBUMIN 1.9 G/DL (3.2-4.8); CHLORIDE 108 MEQ/L (99-109); CREATININE 2.5 MG/DL (0.6-1.3); GFR ESTIMATE (CALCULATED) 26 mL/min/ (58.99-99999); GLUCOSE 165 mg/dL (70-99); POTASSIUM 4.1 MEQ/L (3.7-5.4); SODIUM 136 MEQ/L (136-147); UREA NITROGEN (BUN) 44 mg/dL (9-23)
[2017-07-12 13:14] LABS: HEMATOCRIT 30.5 % (38.0-50.0); HEMOGLOBIN 9.4 G/DL (12.5-16.6); MCH 30.8 PG (29.0-34.0); MCHC 30.8 G/DL (30.0-36.0); PLATELET COUNT 290 K/uL (156-360); RBC DIS.WIDTH-CV 20.1 % (11.8-14.6); RED BLOOD COUNT 3.05 M/uL (4.00-5.50); WHITE BLOOD COUNT 15.6 K/uL (4.1-10.2)
[2017-07-12 13:15] LABS: BASOPHIL (%) 0.4 % (0-1); BASOPHIL COUNT 0.1 K/uL (0-0.1); EOSINOPHIL (%) 5.2 % (0-5); EOSINOPHIL COUNT 0.8 K/uL (0-0.3); IMMATURE GRANULOCYTE (%) 0.6 % (0.0-0.7); LYMPHOCYTE (%) 4.5 % (15-42); LYMPHOCYTE COUNT 0.7 K/uL (1.0-2.8); MONOCYTE (%) 6.7 % (3-12); MONOCYTE COUNT 1.1 K/uL (0-0.8); NEUTROPHIL (%) 82.6 % (45-76); NEUTROPHIL COUNT 12.9 K/uL (1.8-6.4)
[2017-07-13] VITALS (24 sets, daily range): BP systolic 82–151; BP diastolic 46–81
[2017-07-13 05:42] LABS: CHLORIDE 103 MEQ/L (99-109); GLUCOSE 146 mg/dL (70-99); POTASSIUM 4.5 MEQ/L (3.7-5.4); SODIUM 138 MEQ/L (136-147); UREA NITROGEN (BUN) 29 mg/dL (9-23)
[2017-07-13 05:43] LABS: CREATININE 1.8 MG/DL (0.6-1.3); GFR ESTIMATE (CALCULATED) 38 mL/min/ (58.99-99999)
[2017-07-13 06:17] LABS: BASOPHIL (%) 0.6 % (0-1); BASOPHIL COUNT 0.1 K/uL (0-0.1); EOSINOPHIL (%) 5.3 % (0-5); EOSINOPHIL COUNT 0.7 K/uL (0-0.3); HEMATOCRIT 31.2 % (38.0-50.0); HEMOGLOBIN 9.7 G/DL (12.5-16.6); IMMATURE GRANULOCYTE (%) 0.8 % (0.0-0.7); LYMPHOCYTE (%) 4.8 % (15-42); LYMPHOCYTE COUNT 0.7 K/uL (1.0-2.8); MCH 30.8 PG (29.0-34.0); MCHC 31.1 G/DL (30.0-36.0); MONOCYTE (%) 8.3 % (3-12); MONOCYTE COUNT 1.1 K/uL (0-0.8); NEUTROPHIL (%) 80.2 % (45-76); NEUTROPHIL COUNT 10.9 K/uL (1.8-6.4); NRBC (%) 0.2 /100 WBC (0-0); PLATELET COUNT 271 K/uL (156-360); RBC DIS.WIDTH-CV 20.2 % (11.8-14.6); RBC DIS.WIDTH-SD 73.3 % (39-53); RED BLOOD COUNT 3.15 M/uL (4.00-5.50); WHITE BLOOD COUNT 13.6 K/uL (4.1-10.2)
[2017-07-14] VITALS (26 sets, daily range): BP systolic 86–122; BP diastolic 48–68
[2017-07-14 06:00] LABS: BASOPHIL (%) 0.5 % (0-1); BASOPHIL COUNT 0.1 K/uL (0-0.1); EOSINOPHIL COUNT 0.7 K/uL (0-0.3); HEMATOCRIT 26.2 % (38.0-50.0); HEMOGLOBIN 8.1 G/DL (12.5-16.6); LYMPHOCYTE (%) 6.7 % (15-42); LYMPHOCYTE COUNT 0.8 K/uL (1.0-2.8); MCH 30.5 PG (29.0-34.0); MCHC 30.9 G/DL (30.0-36.0); MCV 98.5 FL (86-99); MONOCYTE (%) 8.6 % (3-12); NEUTROPHIL (%) 77.2 % (45-76); NEUTROPHIL COUNT 8.9 K/uL (1.8-6.4); PLATELET COUNT 274 K/uL (156-360); RBC DIS.WIDTH-CV 19.9 % (11.8-14.6); RBC DIS.WIDTH-SD 71.7 % (39-53); RED BLOOD COUNT 2.66 M/uL (4.00-5.50); WHITE BLOOD COUNT 11.6 K/uL (4.1-10.2)
[2017-07-14 06:30] LABS: ALBUMIN 2.3 G/DL (3.2-4.8); ALKALINE PHOSPHATASE 67 IU/L (3-129); ALT (GPT) 9 IU/L (3-49); AST (GOT) 20 IU/L (2-34); CHLORIDE 104 MEQ/L (99-109); CREATININE 2.1 MG/DL (0.6-1.3); GFR ESTIMATE (CALCULATED) 32 mL/min/ (58.99-99999); GLUCOSE 144 mg/dL (70-99); MAGNESIUM 1.6 mg/dl (1.3-2.7); PHOSPHORUS 2.1 mg/dL (2.5-4.9); POTASSIUM 4.1 MEQ/L (3.7-5.4); SODIUM 139 MEQ/L (136-147); TOTAL BILIRUBIN 0.4 MG/DL (0.0-1.0); TOTAL PROTEIN 4.6 G/DL (6.4-8.3); UREA NITROGEN (BUN) 36 mg/dL (9-23)
[2017-07-15] VITALS (25 sets, daily range): BP systolic 79–127; BP diastolic 45–66
[2017-07-15 04:57] LABS: BASOPHIL (%) 0.4 % (0-1); EOSINOPHIL (%) 5.4 % (0-5); EOSINOPHIL COUNT 0.6 K/uL (0-0.3); HEMATOCRIT 23.5 % (38.0-50.0); HEMOGLOBIN 7.7 G/DL (12.5-16.6); IMMATURE GRANULOCYTE (%) 1.3 % (0.0-0.7); LYMPHOCYTE (%) 6.4 % (15-42); LYMPHOCYTE COUNT 0.7 K/uL (1.0-2.8); MCH 31.7 PG (29.0-34.0); MCHC 32.8 G/DL (30.0-36.0); MCV 96.7 FL (86-99); MONOCYTE (%) 7.9 % (3-12); MONOCYTE COUNT 0.9 K/uL (0-0.8); NEUTROPHIL (%) 78.6 % (45-76); NEUTROPHIL COUNT 8.6 K/uL (1.8-6.4); PLATELET COUNT 241 K/uL (156-360); RBC DIS.WIDTH-CV 19.5 % (11.8-14.6); RBC DIS.WIDTH-SD 69.6 % (39-53); RED BLOOD COUNT 2.43 M/uL (4.00-5.50); WHITE BLOOD COUNT 10.9 K/uL (4.1-10.2)
[2017-07-15 06:00] LABS: CHLORIDE 105 mEq/L (99-109); POTASSIUM 4.1 mEq/L (3.7-5.4); SODIUM 139 mEq/L (136-147)
[2017-07-15 06:01] LABS: MAGNESIUM 1.6 mg/dL (1.3-2.7)
[2017-07-15 06:03] LABS: GLUCOSE 144 mg/dL (70-99)
[2017-07-15 06:06] LABS: PHOSPHORUS 2.7 mg/dL (2.5-4.9)
[2017-07-15 06:07] LABS: CREATININE 2.4 mg/dL (0.6-1.3); GFR ESTIMATE (CALCULATED) 27 mL/min/ (58.99-99999); UREA NITROGEN (BUN) 52 mg/dL (9-23)
[2017-07-15 18:08] LABS: BODY FLUID LDH 105 IU/L
[2017-07-15 18:10] LABS: BODY FLUID PROTEIN < 4.0 G/DL
[2017-07-16] VITALS (25 sets, daily range): BP systolic 89–133; BP diastolic 50–72
[2017-07-16 04:54] LABS: BASOPHIL (%) 0.7 % (0-1); BASOPHIL COUNT 0.1 K/uL (0-0.1); EOSINOPHIL (%) 5.1 % (0-5); EOSINOPHIL COUNT 0.7 K/uL (0-0.3); HEMOGLOBIN 8.8 G/DL (12.5-16.6); IMMATURE GRANULOCYTE (%) 1.5 % (0.0-0.7); LYMPHOCYTE (%) 6.5 % (15-42); LYMPHOCYTE COUNT 0.9 K/uL (1.0-2.8); MCHC 31.4 G/DL (30.0-36.0); MCV 98.6 FL (86-99); MONOCYTE (%) 9.3 % (3-12); MONOCYTE COUNT 1.3 K/uL (0-0.8); NEUTROPHIL (%) 76.9 % (45-76); NEUTROPHIL COUNT 10.4 K/uL (1.8-6.4); PLATELET COUNT 286 K/uL (156-360); RBC DIS.WIDTH-CV 19.3 % (11.8-14.6); RBC DIS.WIDTH-SD 69.6 % (39-53); RED BLOOD COUNT 2.84 M/uL (4.00-5.50); WHITE BLOOD COUNT 13.5 K/uL (4.1-10.2)
[2017-07-16 05:04] LABS: CHLORIDE 106 mEq/L (99-109); POTASSIUM 4.4 mEq/L (3.7-5.4); SODIUM 141 mEq/L (136-147)
[2017-07-16 05:05] LABS: GLUCOSE 181 mg/dL (70-99)
[2017-07-16 05:09] LABS: CREATININE 2.6 mg/dL (0.6-1.3); GFR ESTIMATE (CALCULATED) 25 mL/min/ (58.99-99999)
[2017-07-16 05:10] LABS: UREA NITROGEN (BUN) 57 mg/dL (9-23)
[2017-07-17] VITALS (24 sets, daily range): BP systolic 89–127; BP diastolic 42–81
[2017-07-17 05:59] LABS: BASOPHIL (%) 0.6 % (0-1); BASOPHIL COUNT 0.1 K/uL (0-0.1); EOSINOPHIL (%) 3.8 % (0-5); EOSINOPHIL COUNT 0.5 K/uL (0-0.3); HEMATOCRIT 27.2 % (38.0-50.0); HEMOGLOBIN 8.3 G/DL (12.5-16.6); IMMATURE GRANULOCYTE (%) 1.6 % (0.0-0.7); LYMPHOCYTE (%) 6.7 % (15-42); LYMPHOCYTE COUNT 0.8 K/uL (1.0-2.8); MCH 30.6 PG (29.0-34.0); MCHC 30.5 G/DL (30.0-36.0); MCV 100.4 FL (86-99); MONOCYTE (%) 9.6 % (3-12); MONOCYTE COUNT 1.2 K/uL (0-0.8); NEUTROPHIL (%) 77.7 % (45-76); NEUTROPHIL COUNT 9.7 K/uL (1.8-6.4); PLATELET COUNT 289 K/uL (156-360); RBC DIS.WIDTH-CV 19.1 % (11.8-14.6); RBC DIS.WIDTH-SD 70.6 % (39-53); RED BLOOD COUNT 2.71 M/uL (4.00-5.50); WHITE BLOOD COUNT 12.5 K/uL (4.1-10.2)
[2017-07-17 06:58] LABS: CHLORIDE 103 MEQ/L (99-109); GLUCOSE 152 mg/dL (70-99); MAGNESIUM 1.8 mg/dl (1.3-2.7); SODIUM 138 MEQ/L (136-147); UREA NITROGEN (BUN) 37 mg/dL (9-23)
[2017-07-17 06:59] LABS: CREATININE 1.9 MG/DL (0.6-1.3); GFR ESTIMATE (CALCULATED) 36 mL/min/ (58.99-99999)
[2017-07-18] VITALS (24 sets, daily range): BP systolic 86–148; BP diastolic 45–89
[2017-07-18 06:12] LABS: PHOSPHORUS 3.8 mg/dL (2.5-4.9)
[2017-07-18 07:09] LABS: BASOPHIL (%) 0.7 % (0-1); BASOPHIL COUNT 0.1 K/uL (0-0.1); EOSINOPHIL (%) 3.4 % (0-5); EOSINOPHIL COUNT 0.4 K/uL (0-0.3); HEMATOCRIT 27.9 % (38.0-50.0); HEMOGLOBIN 8.4 G/DL (12.5-16.6); IMMATURE GRANULOCYTE (%) 2.7 % (0.0-0.7); LYMPHOCYTE (%) 6.9 % (15-42); LYMPHOCYTE COUNT 0.9 K/uL (1.0-2.8); MCH 31.3 PG (29.0-34.0); MCHC 30.1 G/DL (30.0-36.0); MCV 104.1 FL (86-99); MONOCYTE (%) 12.4 % (3-12); MONOCYTE COUNT 1.6 K/uL (0-0.8); NEUTROPHIL (%) 73.9 % (45-76); NEUTROPHIL COUNT 9.5 K/uL (1.8-6.4); NRBC (%) 0.2 /100 WBC (0-0); PLATELET COUNT 286 K/uL (156-360); RBC DIS.WIDTH-SD 72.2 % (39-53); RED BLOOD COUNT 2.68 M/uL (4.00-5.50); WHITE BLOOD COUNT 12.9 K/uL (4.1-10.2)
[2017-07-19] VITALS (27 sets, daily range): BP systolic 85–124; BP diastolic 45–68
[2017-07-19 06:00] LABS: BASOPHIL (%) 0.6 % (0-1); BASOPHIL COUNT 0.1 K/uL (0-0.1); EOSINOPHIL (%) 3.9 % (0-5); EOSINOPHIL COUNT 0.3 K/uL (0-0.3); HEMATOCRIT 25.2 % (38.0-50.0); HEMOGLOBIN 7.8 G/DL (12.5-16.6); IMMATURE GRANULOCYTE (%) 1.9 % (0.0-0.7); LYMPHOCYTE (%) 8.7 % (15-42); LYMPHOCYTE COUNT 0.8 K/uL (1.0-2.8); MCH 31.1 PG (29.0-34.0); MCV 100.4 FL (86-99); MONOCYTE (%) 10.4 % (3-12); MONOCYTE COUNT 0.9 K/uL (0-0.8); NEUTROPHIL (%) 74.5 % (45-76); NEUTROPHIL COUNT 6.5 K/uL (1.8-6.4); PLATELET COUNT 302 K/uL (156-360); RBC DIS.WIDTH-CV 18.4 % (11.8-14.6); RBC DIS.WIDTH-SD 66.7 % (39-53); RED BLOOD COUNT 2.51 M/uL (4.00-5.50); WHITE BLOOD COUNT 8.8 K/uL (4.1-10.2)
[2017-07-19 06:52] LABS: CHLORIDE 105 MEQ/L (99-109); GFR ESTIMATE (CALCULATED) 25 mL/min/ (58.99-99999); GLUCOSE 194 mg/dL (70-99); POTASSIUM 4.8 MEQ/L (3.7-5.4); SODIUM 138 MEQ/L (136-147)
[2017-07-19 06:58] LABS: CREATININE 2.6 MG/DL (0.6-1.3); UREA NITROGEN (BUN) 57 mg/dL (9-23)
[2017-07-20] VITALS (24 sets, daily range): BP systolic 85–135; BP diastolic 46–84
[2017-07-20 05:43] LABS: BASOPHIL (%) 0.8 % (0-1); BASOPHIL COUNT 0.1 K/uL (0-0.1); EOSINOPHIL (%) 3.4 % (0-5); EOSINOPHIL COUNT 0.3 K/uL (0-0.3); HEMATOCRIT 23.3 % (38.0-50.0); HEMOGLOBIN 7.2 G/DL (12.5-16.6); IMMATURE GRANULOCYTE (%) 1.3 % (0.0-0.7); LYMPHOCYTE (%) 11.1 % (15-42); MCH 30.4 PG (29.0-34.0); MCHC 30.9 G/DL (30.0-36.0); MCV 98.3 FL (86-99); MONOCYTE (%) 11.2 % (3-12); NEUTROPHIL (%) 72.2 % (45-76); NEUTROPHIL COUNT 6.5 K/uL (1.8-6.4); PLATELET COUNT 375 K/uL (156-360); RBC DIS.WIDTH-CV 18.5 % (11.8-14.6); RBC DIS.WIDTH-SD 65.8 % (39-53); RED BLOOD COUNT 2.37 M/uL (4.00-5.50)
[2017-07-20 05:44] LABS: BASE EXCESS 3.6 mEq/L (-3 to +3); BICARBONATE 27.7 mEq/L (22-26); CARBOXY HGB 0.9 % (0-5); METHEMOGLOBIN 0.9 % (0-1.5); PCO2 39 mm Hg (35-45); PO2 117 mm Hg (80-100); pH 7.46 (7.35-7.45)
[2017-07-20 05:45] LABS: COMMENTS - BLOOD GASES C+A+; DEVICE VENT; FI02 40 %; INSPIRATION TIME 0.8 seconds; MECHANICAL RATE 16 resp/min; MODE AC; PEEP 5 CM/H20; SITE RR; TIDAL VOLUME 440 ML; TOTAL RESP RATE 21 resp/min
[2017-07-20 06:10] LABS: CHLORIDE 106 MEQ/L (99-109); GFR ESTIMATE (CALCULATED) 34 mL/min/ (58.99-99999); MAGNESIUM 2.1 mg/dl (1.3-2.7); PHOSPHORUS 2.6 mg/dL (2.5-4.9); POTASSIUM 4.6 MEQ/L (3.7-5.4); SODIUM 142 MEQ/L (136-147); UREA NITROGEN (BUN) 42 mg/dL (9-23)
[2017-07-20 06:11] LABS: GLUCOSE 82 mg/dL (70-99)
[2017-07-21] VITALS (25 sets, daily range): BP systolic 80–119; BP diastolic 45–70
[2017-07-21 04:52] LABS: BASOPHIL (%) 0.4 % (0-1); BASOPHIL COUNT 0.1 K/uL (0-0.1); EOSINOPHIL (%) 0.6 % (0-5); EOSINOPHIL COUNT 0.1 K/uL (0-0.3); HEMATOCRIT 24.1 % (38.0-50.0); HEMOGLOBIN 7.6 G/DL (12.5-16.6); IMMATURE GRANULOCYTE (%) 0.8 % (0.0-0.7); LYMPHOCYTE (%) 5.6 % (15-42); LYMPHOCYTE COUNT 0.7 K/uL (1.0-2.8); MCH 30.5 PG (29.0-34.0); MCHC 31.5 G/DL (30.0-36.0); MCV 96.8 FL (86-99); MONOCYTE (%) 10.3 % (3-12); MONOCYTE COUNT 1.3 K/uL (0-0.8); NEUTROPHIL (%) 82.3 % (45-76); NEUTROPHIL COUNT 10.2 K/uL (1.8-6.4); PLATELET COUNT 387 K/uL (156-360); RBC DIS.WIDTH-SD 62.7 % (39-53); RED BLOOD COUNT 2.49 M/uL (4.00-5.50); WHITE BLOOD COUNT 12.4 K/uL (4.1-10.2)
[2017-07-21 05:06] LABS: CHLORIDE 106 mEq/L (99-109); POTASSIUM 4.8 mEq/L (3.7-5.4); SODIUM 140 mEq/L (136-147)
[2017-07-21 05:12] LABS: GFR ESTIMATE (CALCULATED) 24 mL/min/ (58.99-99999)
[2017-07-21 05:13] LABS: CREATININE 2.7 mg/dL (0.6-1.3)
[2017-07-21 05:22] LABS: GLUCOSE 158 mg/dL (70-99)
[2017-07-21 05:26] LABS: UREA NITROGEN (BUN) 53 mg/dL (9-23)
[2017-07-21 11:49] LABS: HEPATITIS B SURFACE ANTIGEN Nonreactive
[2017-07-22] VITALS (25 sets, daily range): BP systolic 93–124; BP diastolic 49–70
[2017-07-22 04:55] LABS: BASOPHIL (%) 0.5 % (0-1); BASOPHIL COUNT 0.1 K/uL (0-0.1); EOSINOPHIL (%) 2.3 % (0-5); EOSINOPHIL COUNT 0.3 K/uL (0-0.3); HEMATOCRIT 22.6 % (38.0-50.0); HEMOGLOBIN 7.2 G/DL (12.5-16.6); LYMPHOCYTE (%) 9.9 % (15-42); LYMPHOCYTE COUNT 1.1 K/uL (1.0-2.8); MCH 31.4 PG (29.0-34.0); MCHC 31.9 G/DL (30.0-36.0); MCV 98.7 FL (86-99); MONOCYTE (%) 11.4 % (3-12); MONOCYTE COUNT 1.3 K/uL (0-0.8); NEUTROPHIL (%) 74.9 % (45-76); NEUTROPHIL COUNT 8.3 K/uL (1.8-6.4); PLATELET COUNT 381 K/uL (156-360); RBC DIS.WIDTH-CV 18.3 % (11.8-14.6); RBC DIS.WIDTH-SD 64.8 % (39-53); RED BLOOD COUNT 2.29 M/uL (4.00-5.50); WHITE BLOOD COUNT 11.1 K/uL (4.1-10.2)
[2017-07-22 05:05] LABS: CHLORIDE 105 mEq/L (99-109); POTASSIUM 4.4 mEq/L (3.7-5.4); SODIUM 139 mEq/L (136-147)
[2017-07-22 05:11] LABS: GFR ESTIMATE (CALCULATED) 34 mL/min/ (58.99-99999)
[2017-07-22 05:12] LABS: UREA NITROGEN (BUN) 39 mg/dL (9-23)
[2017-07-22 05:14] LABS: GLUCOSE 107 mg/dL (70-99)
[2017-07-23] VITALS (21 sets, daily range): BP systolic 83–126; BP diastolic 47–77
[2017-07-24] VITALS: BP 122/90
[2017-07-24 02:00] VITALS: BP 106/63
== END 2017-07-24 02:31 | DRG 853 ==
LOC: EME 16:27 → EDOF 18:46 → 4WEST 18:46 → ENRESERV 18:51 → 4WEST 20:02 → ENRESERV 07-23 → CANRESERV 07-23 → 4WEST 07-23 21:41 → CANRESERV 07-23 21:45 → ENRESERV 07-23 21:45 → 4WEST 07-23 22:47 → ENRESERV 07-23 23:07 → CANRESERV 07-23 23:07 → 4WEST 07-24 02:31
PROVIDERS: Emergency Medicine Emergency Medical Services; Internal Medicine Critical Care Medicine; Internal Medicine Nephrology; Internal Medicine Pulmonary Disease; Physician Assistant; Specialist
PROC: 0BH17EZ Insertion of Endotracheal Airway into Trachea, Via Natural or Artificial Opening (ICD-10-PCS; principal; 2017-07-09)
PROC: 5A1955Z Respiratory Ventilation, Greater than 96 Consecutive Hours (ICD-10-PCS; principal; 2017-07-09)
PROC: 02HV33Z Insertion of Infusion Device into Superior Vena Cava, Percutaneous Approach (ICD-10-PCS; principal; 2017-07-09)
PROC: 0B9D8ZX Drainage of Right Middle Lung Lobe, Via Natural or Artificial Opening Endoscopic, Diagnostic (ICD-10-PCS; 2017-07-15)
PROC: 0B9J8ZX Drainage of Left Lower Lung Lobe, Via Natural or Artificial Opening Endoscopic, Diagnostic (ICD-10-PCS; 2017-07-15)
PROC: 0W9B3ZX Drainage of Left Pleural Cavity, Percutaneous Approach, Diagnostic (ICD-10-PCS; 2017-07-15)
DX: A41.9 Sepsis, unspecified organism (principal); R65.21 Severe sepsis with septic shock; I13.2 Hypertensive heart and chronic kidney disease with heart failure and with stage 5 chronic kidney disease, or end stage renal disease; E11.22 Type 2 diabetes mellitus with diabetic chronic kidney disease; I50.32 Chronic diastolic (congestive) heart failure; N18.6 End stage renal disease; D64.9 Anemia, unspecified; J69.0 Pneumonitis due to inhalation of food and vomit; J96.01 Acute respiratory failure with hypoxia; N39.0 Urinary tract infection, site not specified; E46 Unspecified protein-calorie malnutrition; Z68.1 Body mass index [BMI] 19.9 or less, adult; I48.2 Chronic atrial fibrillation; T17.890A Other foreign object in other parts of respiratory tract causing asphyxiation, initial encounter; Z51.5 Encounter for palliative care; Z99.2 Dependence on renal dialysis; L89.522 Pressure ulcer of left ankle, stage 2; J47.9 Bronchiectasis, uncomplicated; E87.2 Acidosis; E11.51 Type 2 diabetes mellitus with diabetic peripheral angiopathy without gangrene; R68.0 Hypothermia, not associated with low environmental temperature; E78.5 Hyperlipidemia, unspecified; F32.9 Major depressive disorder, single episode, unspecified; K21.9 Gastro-esophageal reflux disease without esophagitis; Z85.51 Personal history of malignant neoplasm of bladder; Z86.73 Personal history of transient ischemic attack (TIA), and cerebral infarction without residual deficits; Z96.652 Presence of left artificial knee joint
CPT/HCPCS: 36600; 70450; 71045; 71275; 74177; 80048; 80053; 80069; 80202; 81003; 82150; 82803; 82948; 83605; 83615 91; 83690; 83735; 83880; 84100; 84157; 84484; 85025; 85027; 85610; 85730; 86850; 86900; 86901; 86920; 87040; 87070; 87081; 87086 GA; 87106; 87116; 87205; 87206; 87340; 87502; 87641; 88108; 89051; 94002; 94003; 94640; 94640 76; 94760; 94799; 99202; 99281; 99285; C1751; G0480; J0456; J0692; J0881; J1644; J1815; J2370; J2543; J2704; J3370; J7030; J7040; J7050; J7120; J7644; P9047; Q0167; S0028